=== PATIENT | female | born 2000 ===

== ENCOUNTER 2019-10-17 12:38 | Emergency (ER) | payer SELFPAY ==
[2019-10-17 12:47] VITALS: BP 137/82
[2019-10-17] MEDS ORDERED: ACETAMINOPHEN 325 MG TAB PO ONE (13:03)
--- NOTE | 2019-10-17 13:21 | Emergency Department Report ---
ED HPI - General Chief complaint: Vaginal Bleeding Stated complaint: BLEEDING PREGNACY Time Seen by Provider: 10/17/19 12:57 Source: patient Mode of arrival: Ambulatory Limitations: No Limitations - History of Present Illness Initial comments: Patient is a 18-year-old female presents emergency room with complaints of lower abdominal cramping and vaginal bleeding that began last night. She states that it is spotting. She denies any heavy bleeding. She states that she did pass one small clot. She denies any nausea, vomiting, diarrhea, fever, dysuria, vaginal discharge or irritation. She states her last menstrual cycle was August 24. She states that she has approximately 6 weeks . She has not seen anybody for this and just took cbzq-ruj-[id number] test. She has a past medical history of diabetes and is on metformin. She states is her first . - Related Data Allergies Allergy/AdvReac Type Severity Reaction Status Date / Time No Known Allergies Allergy Unverified 10/17/19 12:48 ED Review of Systems ROS: Stated complaint: BLEEDING PREGNACY Other details as noted in HPI Comment: All other systems reviewed and negative ED Past Medical Hx - Past Medical History Previous Medical History?: Yes Hx Diabetes: Yes - Social History Smoking Status: Never Smoker Substance Use Type: None ED Physical Exam - General Limitations: No Limitations General appearance: alert, in no apparent distress - Head Head exam: Present: atraumatic, normocephalic - Eye Eye exam: Present: normal appearance - ENT ENT exam: Present: mucous membranes moist - Respiratory Respiratory exam: Present: normal lung sounds bilaterally. Absent: respiratory distress, wheezes, rales, rhonchi, stridor, chest wall tenderness, accessory muscle use, decreased breath sounds, prolonged expiratory - Cardiovascular Cardiovascular Exam: Present: regular rate, normal rhythm, normal heart sounds. Absent: systolic murmur, rubs, gallop - GI/Abdominal GI/Abdominal exam: Present: soft, normal bowel sounds. Absent: distended, tenderness, guarding, rebound, rigid - Neurological Exam Neurological exam: Present: alert, oriented X3 - Psychiatric Psychiatric exam: Present: normal affect, normal mood - Skin Skin exam: Present: warm, dry, intact ED Course Vital Signs 10/17/19 12:44 Temperature 98.2 F Pulse Rate 104 H Blood Pressure 137/82 - Reevaluation(s) Reevaluation #1: 10/17/19 14:23 Called the lab regarding patient's delayed ABO/Rh results, they state they are looking for the sample ED Medical Decision Making - Lab Data Result diagrams: 10/17/19 13:11 10/17/19 13:11 Lab Results 10/17/19 10/17/19 10/17/19 Range/Units 13:11 13:11 13:11 WBC 8.3 (4.5-11.0) K/mm3 RBC 5.34 H (3.65-5.03) M/mm3 Hgb 14.3 (10.1-14.3) gm/dl Hct 43.2 H (30.3-42.9) % MCV 81 (79-97) fl MCH 27 L (28-32) pg MCHC 33 (30-34) % RDW 15.2 (13.2-15.2) % Plt Count 297 (140-440) K/mm3 Lymph % (Auto) 36.7 H (13.4-35.0) % Bacon % (Auto) 6.4 (0.0-7.3) % Eos % (Auto) 1.5 (0.0-4.3) % Baso % (Auto) 0.7 (0.0-1.8) % Lymph # 3.1 (1.2-5.4) K/mm3 Bacon # 0.5 (0.0-0.8) K/mm3 Eos # 0.1 (0.0-0.4) K/mm3 Baso # 0.1 (0.0-0.1) K/mm3 Seg Neutrophils % 54.7 (40.0-70.0) % Seg Neutrophils # 4.6 (1.8-7.7) K/mm3 Sodium (137-145) mmol/L Potassium (3.6-5.0) mmol/L Chloride (98-107) mmol/L Carbon Dioxide (22-30) mmol/L Anion Gap mmol/L BUN (7-17) mg/dL Creatinine (0.6-1.2) mg/dL Estimated GFR ml/min BUN/Creatinine Ratio % Glucose (65-100) mg/dL Calcium (8.4-10.2) mg/dL Total Bilirubin (0.1-1.2) mg/dL AST (5-40) units/L ALT (7-56) units/L Alkaline Phosphatase (35-129) units/L Total Protein (6.3-8.2) g/dL Albumin (3.9-5) g/dL Albumin/Globulin Ratio % HCG, Quant 1278 H (0-4) mIU/mL Urine Color (Yellow) Urine Turbidity (Clear) Urine pH (5.0-7.0) Ur Specific [place] (1.003-1.030) Urine Protein (Negative) mg/dL Urine Glucose (UA) (Negative) mg/dL Urine Ketones (Negative) mg/dL Urine Blood (Negative) Urine Nitrite (Negative) Urine Bilirubin (Negative) Urine Urobilinogen (<2.0) mg/dL Ur Leukocyte Esterase (Negative) Urine WBC (Auto) (0.0-6.0) /HPF Urine RBC (Auto) (0.0-6.0) /HPF U Epithel Cells (Auto) (0-13.0) /HPF Urine Mucus /HPF Blood Type O POSITIVE 10/17/19 10/17/19 Range/Units 13:11 Unknown WBC (4.5-11.0) K/mm3 RBC (3.65-5.03) M/mm3 Hgb (10.1-14.3) gm/dl Hct (30.3-42.9) % MCV (79-97) fl MCH (28-32) pg MCHC (30-34) % RDW (13.2-15.2) % Plt Count (140-440) K/mm3 Lymph % (Auto) (13.4-35.0) % Bacon % (Auto) (0.0-7.3) % Eos % (Auto) (0.0-4.3) % Baso % (Auto) (0.0-1.8) % Lymph # (1.2-5.4) K/mm3 Bacon # (0.0-0.8) K/mm3 Eos # (0.0-0.4) K/mm3 Baso # (0.0-0.1) K/mm3 Seg Neutrophils % (40.0-70.0) % Seg Neutrophils # (1.8-7.7) K/mm3 Sodium 135 L (137-145) mmol/L Potassium 4.5 (3.6-5.0) mmol/L Chloride 100.7 (98-107) mmol/L Carbon Dioxide 21 L (22-30) mmol/L Anion Gap 18 mmol/L BUN 15 (7-17) mg/dL Creatinine 0.5 L (0.6-1.2) mg/dL Estimated GFR > 60 ml/min BUN/Creatinine Ratio 30 % Glucose 228 H (65-100) mg/dL Calcium 9.4 (8.4-10.2) mg/dL Total Bilirubin 0.30 (0.1-1.2) mg/dL AST 17 (5-40) units/L ALT 10 (7-56) units/L Alkaline Phosphatase 82 (35-129) units/L Total Protein 7.5 (6.3-8.2) g/dL Albumin 4.4 (3.9-5) g/dL Albumin/Globulin Ratio 1.4 % HCG, Quant (0-4) mIU/mL Urine Color Yellow (Yellow) Urine Turbidity Slightly-cloudy (Clear) Urine pH 6.0 (5.0-7.0) Ur Specific [place] 1.039 H (1.003-1.030) Urine Protein 100 mg/dl (Negative) mg/dL Urine Glucose (UA) >=500 (Negative) mg/dL Urine Ketones 80 (Negative) mg/dL Urine Blood Lg (Negative) Urine Nitrite Neg (Negative) Urine Bilirubin Neg (Negative) Urine Urobilinogen < 2.0 (<2.0) mg/dL Ur Leukocyte Esterase Sm (Negative) Urine WBC (Auto) 37.0 H (0.0-6.0) /HPF Urine RBC (Auto) > 182.0 (0.0-6.0) /HPF U Epithel Cells (Auto) 13.0 (0-13.0) /HPF Urine Mucus 2+ /HPF Blood Type - Radiology Data Radiology results: report reviewed ULTRASOUND OBSTETRIC INDICATION: 7 weeks, 4 days with cramping and bleeding. TECHNIQUE: Transabdominal and Transvaginal. COMPARISON: None available. FINDINGS: GESTATIONAL SAC: Not seen. YOLK SAC: Not seen. EMBRYO/FETUS: Not seen. ADNEXA: There is a 1.3 cm dominant follicle in the right ovary. No other significant abnormality. FREE FLUID: None. ADDITIONAL FINDINGS: Nonspecific endometrial thickening is noted along the lower uterine segment, measuring up to 19 mm. 2 probable subcentimeter nabothian cysts are noted. IMPRESSION: 1. No sonographic evidence of an intrauterine or ectopic . Please correlate with the patient's beta hCG level. 2. Nonspecific thickening of the endometrium. No other acute abnormality of the pelvis. Signer Name: Malcolm Bui MD Signed: 10/17/2019 2:38 PM Workstation Name: [id number] Transcribed By: [place] Dictated By: Malcolm Bui MD Electronically Authenticated By: Malcolm Bui MD Signed Date/Time: 10/17/191437 DD/ 35 TD/TT: - Medical Decision Making Patient is a 18-year-old female presents emergency room with complaints of lower abdominal cramping and vaginal bleeding that began last night. She states that it is spotting. She denies any heavy bleeding. She states that she did pass one small clot. She denies any nausea, vomiting, diarrhea, fever, dysuria, vaginal discharge or irritation. She states her last menstrual cycle was August 24. She states that she has approximately 6 weeks . She has not seen anybody for this and just took crfj-grs-bhsyqau test. She has a past medical history of diabetes and is on metformin. She states is her first . No abdominal tenderness on exam, no guarding, no rebound, no rigidity, normal bowel sounds. Patient given Tylenol for abdominal cramping and improved. H&H is normal. Labs with elevated blood glucose of 228, pt given 1L of NS. hCG quant is 1278. UA does show many red blood cells, there is small amount of white blood cells and very small leukocyte esterase most likely secondary to contamination from blood, patient is not having any urinary symptoms, patient can follow-up with [facility] for repeat urine sample. Patient is Rh+. OB US: 1. No sonographic evidence of an intrauterine or ectopic . Please correlate with the patient's beta hCG level. 2. Nonspecific thickening of the endometrium. No other acute abnormality of the pelvis. Discussed all results with patient. Findings could represent spontaneous miscarriage versus very early . Patient will need close follow-up. Advised patient that she need to have her hCG quant repeated in 2 days. advised pt May take Tylenol [id number]-kfhychv as needed for abdominal cramping. Increase your water intake. Please take a vitamin [id number]. Today (10/17/2019) your hCG qu ant is 1278. You need to have a repeat hCG quant within 2 days, may have this done at the [facility] or return to emergency room if you are unable to follow-up. Please follow-up with a primary care doctor regarding the elevation in your blood sugar. Eat a low sugar/low carbohydrate diet. Follow-up with an [facility]. Return to emergency room for any new or worsening symptoms. - Differential Diagnosis IUP, , ectopic, subchorionic hemorrhage, hemorrhagic cyst Critical care attestation.: If time is entered above; I have spent that time in minutes in the direct care of this critically ill patient, excluding procedure time. ED Disposition Clinical Impression: Abdominal cramping, Vaginal spotting, Elevated serum hCG, Hyperglycemia Disposition: - TO HOME OR SELFCARE Is pt being admited?: No Does the pt Need Aspirin: No Condition: Stable Instructions: Threatened Miscarriage (ED), Diabetic Hyperglycemia (ED) Additional Instructions: May take Tylenol [id number]-wepwjzh as needed for abdominal cramping. Increase your water intake. Please take a vitamin uzln-lyi-oxqqdoa. Today (10/17/2019) your hCG quant is 1278. You need to have a repeat hCG quant within 2 days, may have this done at the [facility] or return to emergency room if you are unable to follow-up. Please follow-up with a primary care doctor regarding the elevation in your blood sugar. Eat a low sugar/low carbohydrate diet. Follow- up with an [facility]. Return to emergency room for any new or worsening symptoms. Referrals: TRACEY CLEMENT MD [Staff Physician] - 2-3 Days [facility] [Provider Group] - 2-3 Days [facility] [Outside] - 2-3 Days [facility] [Provider Group] - 2-3 Days [facility] [Provider Group] - 2-3 Days [facility] [Provider Group] - 2-3 Days Time of Disposition: 15:30 Print Language: GERMAN
[2019-10-17 13:28] LABS: Basophils # (Auto) 0.1 K/mm3 (0.0-0.1); Basophils % (Auto) 0.7 % (0.0-1.8); Eosinophils # (Auto) 0.1 K/mm3 (0.0-0.4); Eosinophils % (Auto) 1.5 % (0.0-4.3); Hematocrit 43.2 % (30.3-42.9); Hemoglobin 14.3 gm/dl (10.1-14.3); Lymphocytes # (Auto) 3.1 K/mm3 (1.2-5.4); Lymphocytes % (Auto) 36.7 % (13.4-35.0); Mean Corpuscular HGB Conc 33 % (30-34); Mean Corpuscular Volume 81 fl (79-97); Monocytes # (Auto) 0.5 K/mm3 (0.0-0.8); Monocytes % (Auto) 6.4 % (0.0-7.3); Platelet Count 297 K/mm3 (140-440); Red Blood Count 5.34 M/mm3 (3.65-5.03); Red Cell Distribution Width 15.2 % (13.2-15.2)
[2019-10-17 13:42] LABS: Alanine Aminotransferase 10 units/L (7-56); Albumin 4.4 g/dL (3.9-5); Blood Urea Nitrogen 15 mg/dL (7-17); Calcium 9.4 mg/dL (8.4-10.2); Hemolysis Index 6
[2019-10-17 13:43] LABS: BUN/Creatinine Ratio 30
[2019-10-17 14:03] LABS: Bilirubin,Urine NEG (Negative); Blood,Urine LG (Negative); Color,Urine Yellow (Yellow); Mucus,Urine 2+ /HPF; RBC,Urine > 182.0 /HPF (0.0-6.0); Urobilinogen,Urine < 2.0 mg/dL (<2.0)
[2019-10-17] MEDS ORDERED: SODIUM CHLORIDE 0.9% 1000 ML 1,000 ML IV ONE (14:05)
--- NOTE | 2019-10-17 14:43 | Ultrasound Report ---
ULTRASOUND OBSTETRIC INDICATION: 7 weeks, 4 days with cramping and bleeding. TECHNIQUE: Transabdominal and Transvaginal. COMPARISON: None available. FINDINGS: GESTATIONAL SAC: Not seen. YOLK SAC: Not seen. EMBRYO/FETUS: Not seen. ADNEXA: There is a 1.3 cm dominant follicle in the right ovary. No other significant abnormality. FREE FLUID: None. ADDITIONAL FINDINGS: Nonspecific endometrial thickening is noted along the lower uterine segment, suzan suring up to 19 mm. 2 probable subcentimeter nabothian cysts are noted. IMPRESSION: 1. No sonographic evidence of an intrauterine or ectopic . Please correlate with the patient 's beta hCG level. 2. Nonspecific thickening of the endometrium. No other acute abnormality of the pelvis. Signer Name: Malcolm Bui MD Signed: 10/17/2019 2:38 PM Workstation Name: [id number]
== END 2019-10-17 16:18 | disposition home or self-care (01) ==
LOC: ED 12:38
DX: O26.851 Spotting complicating pregnancy, first trimester (principal); O26.891 Other specified pregnancy related conditions, first trimester; O24.911 Unspecified diabetes mellitus in pregnancy, first trimester; O99.281 Endocrine, nutritional and metabolic diseases complicating pregnancy, first trimester; R10.30 Lower abdominal pain, unspecified; E11.65 Type 2 diabetes mellitus with hyperglycemia; Z3A.01 Less than 8 weeks gestation of pregnancy
CPT/HCPCS: 36415; 76801; 76817; 80053; 81001; 84702; 85025; 86900; 86901; 87086; 96360; 96361; 99284; J7030

== ENCOUNTER 2019-10-20 10:21 | Emergency (ER) | payer SELFPAY ==
--- NOTE | 2019-10-20 10:43 | Emergency Department Report ---
ED HPI - General Chief complaint: Vaginal Bleeding Stated complaint: BLOOD WORK Time Seen by Provider: 10/20/19 10:39 Source: patient Mode of arrival: Ambulatory Limitations: No Limitations - History of Present Illness Initial comments: 18-year-old femal patient presents for a recheck of her beta hCG levels. Patient was seen here 10/17/2019 for vaginal bleeding during and suspected to have a miscarriage. She states she has had continued bleeding and is going through about 3 pads per day. She states there is some mild lower abdominal cramping, however she denies any dysuria, vaginal discharge, dizziness, fever/chills/sweats, stool changes, or nausea/vomiting. Last menstrual cycle was 08/25/2019. Patient states that she does have a follow-up appointment with an [facility] this week. - Related Data Allergies Allergy/AdvReac Type Severity Reaction Status Date / Time No Known Allergies Allergy Unverified 10/17/19 12:48 ED Review of Systems ROS: Stated complaint: BLOOD WORK Other details as noted in HPI Constitutional: denies: chills, fever Eyes: denies: vision change Respiratory: denies: cough, shortness of breath Cardiovascular: denies: chest pain Gastrointestinal: as per HPI. denies: nausea, vomiting, diarrhea Genitourinary: denies: urgency, dysuria, frequency, hematuria Musculoskeletal: denies: back pain Skin: denies: rash, lesions Neurological: denies: headache Hematological/Lymphatic: denies: easy bleeding, swollen glands ED Past Medical Hx - Past Medical History Previous Medical History?: Yes Hx Diabetes: Yes - Surgical History Past Surgical History?: Yes - Social History Smoking Status: Never Smoker Substance Use Type: None ED Physical Exam - General Limitations: No Limitations General appearance: alert, in no apparent distress - Head Head exam: Present: atraumatic, normocephalic - Eye Eye exam: Present: normal appearance. Absent: scleral icterus - Neck Neck exam: Present: normal inspection - Respiratory Respiratory exam: Present: normal lung sounds bilaterally. Absent: respiratory distress - Cardiovascular Cardiovascular Exam: Present: regular rate, normal rhythm - GI/Abdominal GI/Abdominal exam: Present: soft, normal bowel sounds. Absent: distended, tenderness, guarding, rebound, rigid - Neurological Exam Neurological exam: Present: alert, oriented X3 - Psychiatric Psychiatric exam: Present: normal affect, normal mood - Skin Skin exam: Present: warm, dry, intact, normal color. Absent: rash, cyanosis ED Course Vital Signs 10/20/19 10/20/19 11:35 12:05 Temperature 98.2 F Pulse Rate 78 Respiratory 16 18 Rate Blood Pressure 120/70 [Left] O2 Sat by Pulse 100 100 Oximetry ED Medical Decision Making - Lab Data Lab Results 10/20/19 10/20/19 10/20/19 Range/Units 11:02 12:16 Unknown POC Glucose 237 H (70-105) HCG, Quant 119.6 H (0-4) mIU/mL Urine Color Yellow (Yellow) Urine Turbidity Slightly-cloudy (Clear) Urine pH 6.0 (5.0-7.0) Ur Specific [place] 1.035 H (1.003-1.030) Urine Protein 30 mg/dl (Negative) mg/dL Urine Glucose (UA) >=500 (Negative) mg/dL Urine Ketones 20 (Negative) mg/dL Urine Blood Lg (Negative) Urine Nitrite Neg (Negative) Urine Bilirubin Neg (Negative) Urine Urobilinogen < 2.0 (<2.0) mg/dL Ur Leukocyte Esterase Neg (Negative) Urine WBC (Auto) 56.0 H (0.0-6.0) /HPF Urine RBC (Auto) > 182.0 (0.0-6.0) /HPF U Epithel Cells (Auto) 4.0 (0-13.0) /HPF Urine Bacteria (Auto) 1+ (Negative) /HPF Urine Mucus 3+ /HPF - Medical Decision Making 18-year-old femal patient presents for a recheck of her beta hCG levels. Patient was seen here 10/17/2019 for vaginal bleeding during and suspected to have a miscarriage. Beta hCG level = 1278 at that time. UA also showed 37 WBCs, however urine culture showed normal caleb growth. UA today shows 57 WBCs and >500 glucose. POC glucose = 237 patient admits to history of type 2 diabetes and states she is compliant with her metformin. Beta-hCG today = 119.6; no IUP noted on ultrasound 10/17/2019. Findings are consistent with miscarriage. Patient informed to follow-up with her [facility] Wednesday. Vitals are normal, patient is well-appearing, she is stable for discharge home. Strict return precautions were discussed in detail with patient who verbalizes understanding. Critical care attestation.: If time is entered above; I have spent that time in minutes in the direct care of this critically ill patient, excluding procedure time. ED Disposition Clinical Impression: Spontaneous Disposition: [id number] TO HOME OR SELFCARE Is pt being admited?: No Condition: Stable Instructions: Spontaneous Miscarriage (ED) Additional Instructions: Please follow-up with your [facility] on 10/23/2019.
[2019-10-20 11:22] LABS: Bacteria,Urine 1+ /HPF (Negative); Bilirubin,Urine NEG (Negative); Blood,Urine LG (Negative); Color,Urine Yellow (Yellow); Mucus,Urine 3+ /HPF; Urobilinogen,Urine < 2.0 mg/dL (<2.0)
[2019-10-20 11:23] LABS: RBC,Urine > 182.0 /HPF (0.0-6.0)
[2019-10-20 12:57] VITALS: BP 118/68
== END 2019-10-20 12:56 | disposition home or self-care (01) ==
LOC: ED 10:21
DX: O03.9 Complete or unspecified spontaneous abortion without complication (principal); Z3A.01 Less than 8 weeks gestation of pregnancy
CPT/HCPCS: 36415; 81001; 82962; 84702; 87086; 99283